=== PATIENT | male | born 1970 | race African-American/Black ===

== ENCOUNTER 2016-09-06 11:43 | Inpatient (IN) ==
[2016-09-06] MEDS ORDERED: ENOXAPARIN 100 MG/ML SYRINGE SUBCUT STA (12:12)
[2016-09-06] MEDS ORDERED: ASPIRIN 325 MG TABLET PO STA (12:12)
[2016-09-06] MEDS ORDERED: METOPROLOL TARTRATE 5 MG/5 ML VIAL IV STA (12:12)
[2016-09-06] MEDS ORDERED: ONDANSETRON 4 MG/2 ML VIAL IV STA (12:12)
[2016-09-06] MEDS ORDERED: NITROGLYCERIN 2% OINT 1 INCH/GM PACK TOP STA (12:12)
[2016-09-06] MEDS ORDERED: MORPHINE 2 MG/1 ML SYRINGE IV STA (12:12)
--- NOTE | 2016-09-06 12:15 | EKG Report ---
Stationary ECG Study [facility] ER Test Date: 09/06/2016 11:57:03 AM Pat Name: KENYETTA DELEON Department: Room: Gender: M Director Of Clinical Services: Melyssa Shetty : 1970 Requested by: David Yip Order Number: [id number] Reading MD: ANNA SINGH Intervals [place] Rate: 72 P: 67 [place]: 134 QRS: 17 QRSD: 109 T: 41 QT: 396 QTc: 419 Interpretive Statements SINUS RHYTHM Electronically Signed On 09-06-16 18:00:07 CDT by ANNA SINGH [email or web address]
[2016-09-06] MEDS ORDERED: MORPHINE 2 MG/1 ML SYRINGE ONE (12:17)
[2016-09-06] MEDS ORDERED: ENOXAPARIN 100 MG/ML SYRINGE SUBCUT ONE (12:17)
[2016-09-06] MEDS ORDERED: NITROGLYCERIN 2% OINT 1 INCH/GM PACK TOP ONE (12:17)
[2016-09-06] MEDS ORDERED: ONDANSETRON 4 MG/2 ML VIAL ONE (12:17)
[2016-09-06] MEDS ORDERED: METOPROLOL TARTRATE 5 MG/5 ML VIAL IV ONE (12:18)
[2016-09-06] MEDS ORDERED: ASPIRIN 325 MG TABLET ONE (12:18)
[2016-09-06] MEDS ORDERED: ENOXAPARIN 30 MG/0.3 ML SYRINGE ONE (12:18)
[2016-09-06] MEDS: NITROGLYCERIN SL 0.4 MG TABLET SL PRN ×2 (12:25→12:30)
--- NOTE | 2016-09-06 12:35 | Emergency Department Note ---
Elvis Harris Hilary, am scribing for, and in the presence of, David Moon MD 12: 14. Sarai Harris James D, MD, personally performed the services described in this documentation, ascribed by Petra Leal in my presence, and it is both accurate and complete 234 . Arrival - Arrival Chief Complaint: Chest Pain Stated Complaint: chest pain ED Nursing Triage Note: reports got up and took a shower and when he got out and sat down he had sudden onset of chest pain in middle of chest. pressure type pain and reports feels like he cant catch his breath. denies diaphoresis or n/v Mode of Arrival: Ambulatory Limitations: No Limitations Source: Patient, RN Notes Reviewed - History of Present Illness HPI Narrative: Pt is a 46 y/o black male presenting to the ED with c/o chest pain which onset today. He states that he was taking a shower and when he got out he started having chest pain, he states that it feels like there is a golf ball in his chest. Pt confirms chest pain that radiates to his back, SOB but denies vomiting , nausea, diaphoresis. Pt has a PMHx of HTN. No other complaints or problems stated in the ED. Onset (ago): hour(s) Consistency: constant Severity: moderate Severity scale (1-10): 3 Allergies/Adverse Reactions: Allergies Allergy/AdvReac Type Severity Reaction Status Date / Time BAILEY Inhibitors Allergy ANAPHYLAXIS Verified 08/16/14 02:03 Review of System - Review of System 12 point system: reviewed and no additional remarkable complaints except as stated - Review of System Constitutional: Absent: diaphoresis, fever Respiratory: Present: respiratory distress (SOB) Cardiovascular: Present: chest pain Gastrointestinal: Absent: nausea, vomiting Medical,Surgical,& Family Hx - Medical History Cardio: History of: Hypertension Endocrine: History of: Dyslipidemia - Social History Smoking Status: Never smoker Exam Physical Examination: GENERAL: This is a well-nourished, well-developed in no apparent distress. VITAL SIGNS: Temperature: 97.8 Pulse: 73 Respiratory: 26 Blood Pressure: 174/ 116 O2 Sat: 96 HEENT: Head is normocephalic and atraumatic. Pupils are equally round and reactive to light. Extraocular movement are intact. Oropharynx is benign with moist mucous membranes. NECK: Neck is soft and supple without tenderness. There are no masses. There is no lymphadenopathy. LUNGS: Lungs are clear to auscultation bilaterally. Chest rises symmetrically. There is no chest wall tenderness. CV: Heart is regular rate and rhythm without murmurs, rubs, or gallops. ABDOMEN: Abdomen is soft,non- tender to palpation. There are no abnormal masses palpated. There is no organomegaly. Bowel sounds are present and active. SKIN: Skin is warm and dry. No rash. EXTREMITIES: Patient has full range of motion without tenderness. There is no pedal edema. NEUROLOGIC: Awake, alert, and oriented x4. Cranial nerves II through XII are grossly intact. There are no motorsensory deficits. PSYCHIATRIC: Normal affect. Normal mood. Vital Signs: Vital Signs Temperature 97.8 F 09/06/16 12:18 Pulse Rate 73 09/06/16 12:18 Respiratory Rate 22 09/06/16 12:18 Blood Pressure 174/116 09/06/16 12:18 O2 Sat by Pulse Oximetry 96 09/06/16 11:53 Course Course Narrative: Patient's blood pressure is markedly improved following medication. His chest pain improved with decrease of blood pressure. - Consultations Consultation #1: Discussed with hospitalist. Patient will be admitted to their service. Time: 13:21 Results - Labs CBC & BMP: 09/06/16 12:19 09/06/16 12:19 Lab Results: I have reviewed the patients labs Labs: Laboratory Tests 09/06/16 12:19 WBC 6.5 RBC 5.39 Hgb 14.5 Hct 39.9 L MCV 74.0 L MCHC 36.3 H Plt Count 231 Laboratory Tests 09/06/16 12:19 INR 1.0 Laboratory Tests 09/06/16 12:19 Troponin I < 0.015 Laboratory Tests 09/06/16 09/06/16 09/06/16 12:19 12:19 12:19 INR 1.0 PT Patient/Control Mix 10.9 Circ Anticoag PTT 27.5 Sodium 141 Potassium 4.2 Chloride 108 H Carbon Dioxide 23 BUN 18 BUN/Creatinine Ratio 20.00 Troponin I < 0.015 Total Protein 8.1 Globulin 4.1 H Albumin/Globulin Ratio 0.9 L - EKG EKG results: interpreted by ERMD - Impressions EKG: Normal sinus rhythm with rate of 72, normal ST-T waves, normal axis. - Diagnostic Findings Procedure: Chest x-ray: image reviewed by me (Cardiomegaly, no pleural effusions , no infiltrates.) Disposition Clinical Impression: Chest pain, Essential hypertension, Family history of coronary artery disease in mother Case discussed with: patient, patient's family Disposition: Still a Patient Condition: Guarded Time of Disposition: 13:20
[2016-09-06 12:45] LABS: Basophils % 0.6 % (0.0-0.8); Eosinophils # 0.1 10*3/uL (0.0-0.87); Eosinophils % 1.8 % (0.00-10.9); Hematocrit 39.9 VOL% (42.0-52.0); Hemoglobin 14.5 GM/DL (14.0-18.0); Immature Granulocytes % 0.8 %; Immature Granulocytes Absolute 0.05 #; Lymphocytes # 2.4 10*3/uL (1.4-4.0); Lymphocytes % 37.2 % (21.2-54.2); Mean Corpuscular HGB Conc 36.3 GM/DL (32-36); Mean Corpuscular Hemoglobin 27 PG (27-34); Mean Platelet Volume 10.6 FL (9.6-12.0); Monocytes # 0.6 10*3/uL (0.11-0.8); Neutrophils # 3.3 10*3/uL (1.4-7.4); Neutrophils % 50.6 % (38.7-73.9); Platelet Count 231 T/CUMM (130-400); Red Blood Count 5.39 MC/CUMM (3.8-5.5); Red Cell Distribution Width 16.4 % (9.3-17.3); White Blood Count 6.5 T/CUMM (4-12)
--- NOTE | 2016-09-06 12:56 | XRay Report ---
XR chest 2V Indication: Chest pain. Chest 2 views: Comparison 10/14/2010. Heart has increased slightly in size, now borderline enlarged. Mild central pulmonary vascular congestion is more pronounced as well. No focal pneumonia, and no significant peripheral edema demonstrated. Pleural spaces are clear. Impression: Mild CHF. PROCEDURE INTERPRETED AT [facility] DEPARTMENT OF RADIOLOGY Final Report Signed by: Jose Valadez M.D.
[2016-09-06 12:57] LABS: PT Patient Result 10.9 SECS; Partial Thromboplastin Time 27.5 SECS (0-40)
[2016-09-06 13:10] LABS: Bilirubin,Total 0.8 MG/DL (0.2-1.0); Calcium 9.6 MG/DL (8.5-10.1); Osmolality,Calculated 282.3 MOS/KG (273-304); Potassium 4.2 MMOL/L (3.5-5.1); Total Protein 8.1 G/DL (6.4-8.3)
[2016-09-06] MEDS ORDERED: ACETAMINOPHEN 325 MG TABLET PO PRN (14:01)
[2016-09-06] MEDS ORDERED: ONDANSETRON 4 MG/2 ML VIAL IV PRN (14:01)
[2016-09-06] MEDS ORDERED: FUROSEMIDE 40 MG/4 ML VIAL IV ONE (14:04)
[2016-09-06] MEDS ORDERED: hydrALAZINE 20 MG/1 ML VIAL IV STA (14:04)
--- NOTE | 2016-09-06 14:21 | Hospitalist History & Physical ---
Assessment and Plan - Time spent with patient Time spent with patient: Greater than 30 minutes (1) Chest pain Status: Acute Assessment and plan: Chest xray - shows mild CHF - will continue to monitor; admit; labs; start on BP medications to control BP; CT of chest to R/O PE; doppler left leg r/t pain maldonado and calf; EKG; serial troponins, Echo; order PRN hydralazine; patient is unable to take BAILEY inhibitors r/t severe allergy Current Visit: Yes (2) Essential hypertension Status: Acute Current Visit: Yes History of Present Illness Chief complaint: chest pain History of present illness: Mr. Calderon is a 46 year old black male presented to the ED at [facility] this afternoon for evaluation of chest pain, starting today at 11:30. Patient has a medical history of hypertension and cholesterol. Patient reported onset at 11;30 a.m. today. Pertinent positives: hypertension, increased pain with deep inspiration. Patient has not taken BP medications in months (not sure how long); he ran out but could not afford to refill; Negatives: denies: nausea, vomiting, dizziness, syncope, cough, fever, or chills. Patient recently traveled to [place] to help a friend move and noticed some swelling in his left leg/ankle and the next day has some maldonado pain and tenderness but has been able to walk with without a lot of pain. Past surgery: had a "type of colon surgery when he was a ". Patient is ALLERGIC to BAILEY inhibitors. ED presentation: assessed and labs: H&H 14.5/39.9; PLT 231; INR 1.0; PT 10.9; PTT 27.5; sodium 141; K 4.2; chloride 108; anion gap 14.2; BUN 18; Creatinine 0.90; AST 22; ALT 42; ALT 42; alkaline Phos 90; Troponin <0.015 chest xray - mild CHF EKG - NSR Dr Pantoja went with me to exam patient and she is in agreement with Dr Moon the patient needs to be admitted for further evaluation. Allergies Allergy/AdvReac Type Severity Reaction Status Date / Time BAILEY Inhibitors Allergy ANAPHYLAXIS Verified 08/16/14 02:03 Medical,Surgical,& Family Hx - Medical History Cardio: History of: Hypertension Endocrine: History of: Dyslipidemia - Surgical History Additional Surgical History: patient states he had some type of colon surgery as a - Family History Family History: Reports;: Family Heart Disease (mother), Family Hypertension ( mother) - Social History Smoking Status: Never smoker Frequency of Alcohol Use: Frequently (2-3 times a week (beer and [place])) Type of Drug Use: None Marital Status: Lives With:: Spouse Functional capacity: independent ambulation Review of systems: ROS completed and pertinent positives and negatives in HPI Exam - Constitutional Vitals: Period Temp Pulse Resp BP Sys/Ramirez Pulse Ox Last 24 Hr 97.8 F-97.8 F 73-73 22-26 174-174/116-116 96 General appearance: over weight - Head Head exam: Present: normal inspection - Eye Pupils: Present: JANETH - Neck Neck exam: Present: normal inspection - Respiratory Respiratory exam: Present: clear to auscultation bilaterally - Cardiovascular Cardiovascular exam: Present: regular rate and rhythm - GI/Abdominal GI/Abdominal exam: Present: normal bowel sounds, soft. Absent: tenderness, rebound - Extremities Exam Extremities exam: Present: calf tenderness (left leg has some pain upon palpation; that has started a couple of days ago) - Neurological Exam Neurological exam: Present: alert, oriented X3, CN II-XII intact - Psychiatric Psychiatric exam: Present: normal affect - Skin Skin exam: Present: normal color, warm, dry Results - Labs CBC & BMP: 09/06/16 12:19 09/06/16 12:19 Lab Results: I have reviewed the past 24 hour labs - Diagnostic Findings Procedure: Chest x-ray: report reviewed by me (mild CHF)
--- NOTE | 2016-09-06 14:22 | CT Report ---
Exam: CT chest with contrast, PE study Date: 09/06/2016 Comparison: Chest x-ray 09/06/2016 Reason: Chest pain, shortness of breath Technique: Axial images of the chest were obtained after administration of 80 cc of IV Omnipaque 350 intravenous contrast. Coronal reformatted images were also acquired. The study was performed per pulmonary embolism protocol. Total DLP: 812.70 Findings: The heart is borderline in size with cardiac fat pads. No significant contrast in the aorta with limited contrast in the pulmonary arteries. No definite pulmonary emboli are identified. Subcarinal nodes which are borderline in size. Fatty infiltration of the liver with minimal degenerative changes. Minimal atelectasis/infiltration especially in the lower lobes. Tiny groundglass opacities. Impression: No evidence of pulmonary embolism. Somewhat limited contrast in the pulmonary arteries. Heart is borderline size cardiac fat pads and fatty infiltration of the liver. Subcarinal nodes which are borderline size. Minimal atelectasis/infiltration especially in the lower lobes with tiny groundglass opacities. This CT exam was performed using one or more the following dose reduction techniques: Automated exposure control, adjustment of the MA and/or KV according to patient size, or use of iterative reconstruction technique. PROCEDURE INTERPRETED AT [facility] DEPARTMENT OF RADIOLOGY Final Report Signed by: Dr. Roselia Kennedy
--- NOTE | 2016-09-06 15:26 | Ultrasound Report ---
Exam: Bilateral lower extremity venous Doppler ultrasound Comparison: None Clinical history: Leg swelling Technique: Duplex scan of the lower extremity veins using B-mode/grayscale scaled imaging and Doppler spectral analysis and color flow. Findings: Major venous structures of the lower extremities demonstrate a normal course and caliber. Normal color-flow study and spectral analysis. There is normal compression and augmentation of bilateral common femoral, superficial femoral and popliteal veins. The proximal bilateral greater saphenous veins appear to be patent. Impression: No evidence to suggest deep venous thrombosis within either lower extremity. Ultrasound images were captured and stored. PROCEDURE INTERPRETED AT [facility] DEPARTMENT OF RADIOLOGY Final Report Signed by: Dr. Roselia Kennedy
--- NOTE | 2016-09-06 15:52 | EKG Report ---
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
[2016-09-06] MEDS: METOPROLOL TARTRATE 25 MG TABLET PO SCH ×2 (16:27→20:35)
[2016-09-06] MEDS: amLODIPine 10 MG TABLET PO SCH (16:27)
[2016-09-06] MEDS: PANTOPRAZOLE 40 MG TABLET PO SCH (16:28)
--- NOTE | 2016-09-06 17:02 | Cardiology Consult Note ---
<Caro Bey - Last Filed: 09/06/16 16:46> Assessment and Plan - Time spent with patient Time spent with patient: Greater than 30 minutes (1) Atypical chest pain Status: Acute Assessment and plan: SEE PLAN OF CARE LISTED BELOW Current Visit: Yes (2) Uncontrolled hypertension Status: Chronic Assessment and plan: SEE PLAN OF CARE LISTED BELOW Current Visit: Yes (3) Noncompliance with medication regimen Status: Chronic Assessment and plan: SEE PLAN OF CARE LISTED BELOW Current Visit: Yes (4) Obesity Status: Chronic Assessment and plan: SEE PLAN OF CARE LISTED BELOW Current Visit: Yes (5) Dyslipidemia Status: Chronic Assessment and plan: SEE PLAN OF CARE LISTED BELOW Current Visit: Yes (6) Family history of coronary artery disease in mother Status: Chronic Assessment and plan: SEE PLAN OF CARE LISTED BELOW Current Visit: Yes History of Present Illness - Data of Consult Patient: new to practice Consult date: 09/06/16 Requesting Physician: Pilar Pantoja - Consult Narrative History of present illness: Bow Maker Production: New to cardiology (Dr. Irizarry, [facility]) PCP: [facility] in remote past Mr. Calderon is a 46 year old male without known history of coronary artery disease , not routinely followed by cardiology. He has cardiac risk factors significant for hypertension, hyperlipidemia, obesity and family history of coronary artery disease (mother had myocardial infarction at age 58). Patient has a past medical history of hypertension and hyperlipidemia. However, he is extremely noncompliant and reports that he has been out of his medicines for at least 5-6 months. He tells me that he does not have insurance and cannot afford to go to the doctor on a regular basis. His doctor at [facility] would not refill his medications without him being seen first. Therefore, he has not obtained any of his blood pressure or cholesterol medications. Patient is a lifetime non-smoker. He has never been seen by a community center coordinator and has never undergone cardiac workup. Patient was in his usual state of health until early this morning when he began to experience midsternal chest pain. He tells me that it feels like he swallowed a golf ball. Radiates to his back. This began early this morning while sitting down. It has continued off and on all day. He reports that it has worsened with activity and with taking deep breaths. However, he does report that it did occur at rest as well. He is unable to identify any specific alleviating factors. Associated with shortness of breath. He denies any associated nausea or diaphoresis. This continued to progress throughout the day. This concerned him and he decided he needed to be further evaluated in the emergency department. He reports that he received nitroglycerin and morphine in the ER. This relieved his chest pain. He has been admitted under hospitalist's service and housed in the telemetry unit. Cardiology has been consulted to further evaluate his chest pain. Patient was seen and examined on the telemetry unit. He is currently without chest pain, heaviness and tightness. Cardiac biomarkers have been negative 1. EKG is unremarkable. Chest CT was negative for pulmonary embolism. DVT did not reveal any evidence of DVT. On arrival to the emergency department patient' s blood pressure was noted to be 174/116. patient's chest pain is atypical in nature. I suspect this could possibly be related to his uncontrolled blood pressure as he is noncompliant with his medications. Patient does have several risk factors including: Hyperlipidemia, hypertension, obesity and family history. Because of this, patient will need further cardiac workup. We will keep patient n.p.o. and schedule for cardiac stress test in the morning. We will continue to cycle cardiac biomarkers overnight as well as EKGs. Recommend daily aspirin, beta-yazan and lipid-lowering agent for further risk stratification. Will hold beta-yazan in the morning prior to stress testing. I will further discuss this with Dr. carter and await his additional recommendations. ASSESSMENT/PLAN: 1. ATYPICAL CHEST PAIN - Patient's chest pain is atypical in nature. Troponin has been negative 1 and EKG is unremarkable. I suspect this could possibly be related to his uncontrolled blood pressure as he is noncompliant with his medications. Patient does have several risk factors including : Hyperlipidemia, hypertension, obesity and family history. Because of this, patient will need further cardiac workup. We will keep patient n.p.o. and schedule for cardiac stress test in the morning. We will continue to cycle cardiac biomarkers overnight as well as EKGs. Recommend daily aspirin, beta-yazan and lipid-lowering agent for further risk stratification. Continue nitrates. Patient received a therapeutic dose of Lovenox in the emergency room. 2. UNCONTROLLED HYPERTENSION - Agree with the addition of beta-yazan, Norvasc and as needed hydralazine in order to achieve blood pressure control. Will further adjust as needed throughout his hospitalization. 3. MEDICATION NONCOMPLIANCE - Stressed the importance of medication compliance. Patient reports that he is noncompliant due to in adequate compliance and he has no insurance. I will consult social studies teacher to assist. 4. DYSLIPIDEMIA - We will add lipid lowering agent to medication regimen. Will also add lipid panel to lab draw. 5. FAMILY HISTORY OF CAD - He reports that his mother has history of coronary artery disease. She has had 3 myocardial infarctions in the past. He believes that she had her first PA at age 58. 6. OBESITY - Stressed the importance of weight loss. CC: Pilar Pantoja MD - Home Medications and Allergies Home Medications: Home Medications Medication Instructions Recorded Confirmed Type Cetirizine Tab [ZyrTEC Tab] 10 mg PO DAILY PRN 09/06/16 09/06/16 History Citalopram Hydrobromide 20 mg PO DAILY 09/06/16 09/06/16 History [Citalopram HBr] Meloxicam [Mobic] 7.5 mg PO DAILY 09/06/16 09/06/16 History Metoprolol Tartrate 25 mg PO BID 09/06/16 09/06/16 History Ranitidine Tab [Zantac Tab] 150 mg PO BID 09/06/16 09/06/16 History Simvastatin [Zocor] 40 mg PO BEDTIME 09/06/16 09/06/16 History amLODIPine [Norvasc] 2.5 mg PO BEDTIME 09/06/16 09/06/16 History amLODIPine [Norvasc] 10 mg PO DAILY 09/06/16 09/06/16 History Allergies/Adverse Reactions: Allergies Allergy/AdvReac Type Severity Reaction Status Date / Time BAILEY Inhibitors Allergy ANAPHYLAXIS Verified 08/16/14 02:03 - Constitutional Constitutional: Absent: anorexia, chills, fatigue, fever(s), lethargy, weakness , weight gain, weight loss - Cardiovascular Cardiovascular: Present: as per HPI, chest pain at rest, dyspnea. Absent: claudication, diaphoresis, dyspnea on exertion, edema, radiating jaw, neck or arm pain, lightheadedness, orthopnea, palpitations, PND - Respiratory Respiratory: Present: dyspnea, pain on inspiration. Absent: cough, hemoptysis, dyspnea on exertion, wheezing, snoring, change in phlegm color - Gastrointestinal Gastrointestinal: Absent: abdominal pain, change in bowel habits, coffee ground emesis, constipation, dyspepsia, heartburn, hematemesis, hematochezia, melena, nausea, vomiting - Neurological Neurological: Absent: abnormal gait, abnormal speech, behavioral changes, dizziness, frequent falls, syncope - Hematologic/Lymphatic Hematologic/Lymphatic: Absent: easy bleeding, easy bruising, lymphadenopathy Medical,Surgical,& Family Hx - Medical History Cardio: History of: Hypertension Endocrine: History of: Dyslipidemia Gastrointestinal: History of: GI Problems (constipation) Musculoskeletal: History of: Back/Neck Problems ("two years ago), Musculoskeletal Problems ("right leg hurts") - Surgical History Cardiac Surgeries: Patient Denies: Cardiac Catheterization Abdominal Surgeries: Surgical HX of: Abdominal Surgery (small intestine surgery as a baby) - Family History Family History: Reports;: Family Heart Disease (mother), Family Hypertension ( mother) - Social History Smoking Status: Never smoker Frequency of Alcohol Use: Frequently Type of Drug Use: None Physical Examination Vital Signs Temp Pulse Resp BP Pulse Ox 97.8 F 73 26 H 174/116 96 09/06/16 11:53 09/06/16 11:53 09/06/16 11:53 09/06/16 11:53 09/06/16 11:53 Exam: General: Appears well with no apparent distress. Pleasant and cooperative. Appears comfortable. Obese. HEENT: PERRL, normocephalic, atraumatic. Mucous membranes moist. No jaundice noted. Conjunctiva moist and clear, sclerae anicteric Neck: No JVD/HJR, no thyromegaly or lymphadenopathy noted. No carotid bruit appreciated Cardiac: Regular rate and rhythm. No murmur rub or gallop. Lungs: Clear to auscultation without accessory muscle use to assist the respiratory pattern. Not requiring oxygen. Abdomen: Soft, bowel sounds normoactive. Nontender and nondistended. No abdominal bruit or thrill noted. No masses noted. Extremities: No clubbing, cyanosis noted. No edema noted. Upper extremity pulses 2+. Lower extremity pulses 2+. Capillary refill less than 3 seconds. Skin: No unusual lesions or rashes. No skin breakdown appreciated. Neuro: Awake, alert and oriented 3. Moves all extremities well without hemiparesis or paralysis. No essential tremor is appreciated. Result/EKG - Labs CBC & BMP: 09/06/16 12:19 09/06/16 12:19 Lab Results: I have reviewed the past 24 hour labs Labs: Laboratory Results - last 24 hr 09/06/16 09/06/16 09/06/16 12:19 12:19 12:19 WBC 6.5 RBC 5.39 Hgb 14.5 Hct 39.9 L MCV 74.0 L MCH 27 MCHC 36.3 H RDW 16.4 Plt Count 231 MPV 10.6 Neut % (Auto) 50.6 Lymph % (Auto) 37.2 Ward % (Auto) 9.0 Eos % (Auto) 1.8 Baso % (Auto) 0.6 Neut # (Auto) 3.3 Lymph # (Auto) 2.4 Ward # (Auto) 0.6 Eos # (Auto) 0.1 Baso # (Auto) 0.0 Immature Gran % 0.8 Nucleated RBC % 0.0 Immature Gran # 0.05 Nucleated RBCs # 0.00 INR 1.0 PT Patient/Control Mix 10.9 Circ Anticoag PTT 27.5 Sodium 141 Potassium 4.2 Chloride 108 H Carbon Dioxide 23 Anion Gap 14.2 BUN 18 Creatinine 0.90 GFR Calculation 168 BUN/Creatinine Ratio 20.00 Glucose 98 Hemoglobin A1c Calculated Osmolality 282.3 Calcium 9.6 Total Bilirubin 0.80 AST 22 ALT 42 Alkaline Phosphatase 90 Troponin I Total Protein 8.1 Albumin 4.0 Globulin 4.1 H Albumin/Globulin Ratio 0.9 L Lipase 96.0 09/06/16 09/06/16 12:19 12:19 WBC RBC Hgb Hct MCV MCH MCHC RDW Plt Count MPV Neut % (Auto) Lymph % (Auto) Ward % (Auto) Eos % (Auto) Baso % (Auto) Neut # (Auto) Lymph # (Auto) Ward # (Auto) Eos # (Auto) Baso # (Auto) Immature Gran % Nucleated RBC % Immature Gran # Nucleated RBCs # INR PT Patient/Control Mix Circ Anticoag PTT Sodium Potassium Chloride Carbon Dioxide Anion Gap BUN Creatinine GFR Calculation BUN/Creatinine Ratio Glucose Hemoglobin A1c 5.8 Calculated Osmolality Calcium Total Bilirubin AST ALT Alkaline Phosphatase Troponin I < 0.015 Total Protein Albumin Globulin Albumin/Globulin Ratio Lipase - EKG EKG results: interpreted by me, sinus rhythm Quality Measures - Stroke Presenting Symptoms: Efferent motor dysphasia <Rocky Irizarry - Last Filed: 09/06/16 17:09> History of Present Illness - Consult Narrative History of present illness: Cardiology addendum. Patient examined, chart reviewed, discussed with nurse Caro Bey RN. Atypical chest pain. Untreated hypertension BP 174/116 Noncompliance with medication Patient helped a friend moved to [facility] this past Sunday. He did quite a bit of heavy lifting moving furniture and muscle strain is probable cause of his pain. CT the chest was negative for pulmonary embolus. Venous Doppler study legs also negative. Lifetime non-smoker. Hyperlipidemia untreated 5 feet 11 inches tall 290 pounds. Weighed 320 pounds 2 years ago. He consumes beer and whiskey 3 or 4 times per week. Mother had a heart attack and stent at age 54 and second heart attack and stent in her 60s. He has had no contact with his father and several years. He was raised by his grandfather. 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 He has not worked in over 2 years. EKG shows normal sinus rhythm with ST-T wave changes only. Negative troponin. Normal LFTs. Normal renal function. Plan Restart BP meds Echo Doppler Lexiscan cardiac stress test in a.m. Risk factor modification Findings and plan discussed with patient and his Chani CC: Pilar Pantoja MD Physical Examination Vital Signs Temp Pulse Resp BP Pulse Ox 97.8 F 73 26 H 174/116 96 09/06/16 11:53 09/06/16 11:53 09/06/16 11:53 09/06/16 11:53 09/06/16 11:53 Result/EKG - Labs CBC & BMP: 09/06/16 12:19 09/06/16 12:19 Labs: Laboratory Results - last 24 hr 09/06/16 09/06/16 09/06/16 12:19 12:19 12:19 WBC 6.5 RBC 5.39 Hgb 14.5 Hct 39.9 L MCV 74.0 L MCH 27 MCHC 36.3 H RDW 16.4 Plt Count 231 MPV 10.6 Neut % (Auto) 50.6 Lymph % (Auto) 37.2 Ward % (Auto) 9.0 Eos % (Auto) 1.8 Baso % (Auto) 0.6 Neut # (Auto) 3.3 Lymph # (Auto) 2.4 Ward # (Auto) 0.6 Eos # (Auto) 0.1 Baso # (Auto) 0.0 Immature Gran % 0.8 Nucleated RBC % 0.0 Immature Gran # 0.05 Nucleated RBCs # 0.00 INR 1.0 PT Patient/Control Mix 10.9 Circ Anticoag PTT 27.5 Sodium 141 Potassium 4.2 Chloride 108 H Carbon Dioxide 23 Anion Gap 14.2 BUN 18 Creatinine 0.90 GFR Calculation 168 BUN/Creatinine Ratio 20.00 Glucose 98 Hemoglobin A1c Calculated Osmolality 282.3 Calcium 9.6 Total Bilirubin 0.80 AST 22 ALT 42 Alkaline Phosphatase 90 Troponin I Total Protein 8.1 Albumin 4.0 Globulin 4.1 H Albumin/Globulin Ratio 0.9 L Lipase 96.0 09/06/16 09/06/16 09/06/16 12:19 12:19 16:09 WBC RBC Hgb Hct MCV MCH MCHC RDW Plt Count MPV Neut % (Auto) Lymph % (Auto) Ward % (Auto) Eos % (Auto) Baso % (Auto) Neut # (Auto) Lymph # (Auto) Ward # (Auto) Eos # (Auto) Baso # (Auto) Immature Gran % Nucleated RBC % Immature Gran # Nucleated RBCs # INR PT Patient/Control Mix Circ Anticoag PTT Sodium Potassium Chloride Carbon Dioxide Anion Gap BUN Creatinine GFR Calculation BUN/Creatinine Ratio Glucose Hemoglobin A1c 5.8 Calculated Osmolality Calcium Total Bilirubin AST ALT Alkaline Phosphatase Troponin I < 0.015 < 0.015 Total Protein Albumin Globulin Albumin/Globulin Ratio Lipase
--- NOTE | 2016-09-06 17:28 | EKG Report ---
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
--- NOTE | 2016-09-06 17:35 | ECHO Report ---
Jarrell Calderon Exam Date: 09/06/2016 16:08 Referring Physician: Technologist: Latha Allison RDCS Age: 46 Ht (in): 71 Wt (lb): 290 Gender: M Exam Location: [facility] Echo Indications: Chest pain, unspecified, Essential (primary) hypertension, Dyslipidemia BP: 161 / 95 HR: 67 Rhythm: Sinus Technical Quality: Fair IMPRESSIONS EF 60 %. Grade I/IV diastolic dysfunction (abnormal relaxation filling pattern), normal to mildly elevated filling pressures. The right ventricle is normal in size and function. The right atrium is mildly enlarged. The left atrium is mildly enlarged. Morphologically normal mitral valve. Trace mitral valve regurgitation. Trileaflet aortic valve. No aortic valve regurgitation. Mild tricuspid valve regurgitation. PAP42 mmHg. There is no pulmonic regurgitation. Normal pericardium without effusion. Normal ascending aorta dimension. MEASUREMENTS (Male / Female) Normal Values 2D ECHO LV Diastolic Diameter PLAX 4.2 cm 4.2 - 5.9 / 3.9 - 5.3 cm LV Systolic Diameter PLAX 2.8 cm LV Fractional Shortening PLAX 32.6 % IVS Diastolic Thickness 1.3 cm 0.6 - 1.0 / 0.6 - 0.9 cm LVPW Diastolic Thickness 1.3 cm 0.6 - 1.0 / 0.6 - 0.9 cm RV Internal Dim ED PLAX 3.3 cm Aortic Root Diameter 3.3 cm LA Systolic Diameter LX 4.1 cm 3.0 - 4.0 / 2.7 - 3.8 cm DOPPLER TR Peak Velocity 284.0 cm/s TR Peak Gradient 32.3 mmHg FINDINGS Left Ventricle EF 60 %. Grade I/IV diastolic dysfunction (abnormal relaxation filling pattern), normal to mildly elevated filling pressures. Right Ventricle The right ventricle is normal in size and function. Right Atrium The right atrium is mildly enlarged. Left Atrium The left atrium is mildly enlarged. Mitral Valve Morphologically normal mitral valve. Trace mitral valve regurgitation. Aortic Valve Trileaflet aortic valve. No aortic valve regurgitation. Tricuspid Valve Morphologically normal tricuspid valve. Mild tricuspid valve regurgitation. PAP42 mmHg. Pulmonic Valve Morphologically normal pulmonic valve without significant stenosis. There is no pulmonic regurgitation. Pericardium Normal pericardium without effusion. Aorta Normal ascending aorta dimension. Tacho Irizarry (Electronically Signed) Final Date: 06 September 2016 17:34
[2016-09-06 17:43] LABS: Risk Ratio 6.22; VLDL CHOLESTEROL 45.8 MG/DL
[2016-09-06] MEDS: NITROGLYCERIN 2% OINT 1 INCH/GM PACK TOP SCH (18:08)
[2016-09-06] MEDS: MORPHINE 2 MG/1 ML SYRINGE IV PRN (20:35)
[2016-09-06] MEDS: ATORVASTATIN 20 MG TABLET PO SCH (20:35)
[2016-09-06] MEDS ORDERED: ENOXAPARIN 150 MG/ML SYRINGE SUBCUT SCH (22:00)
[2016-09-07 00:05] LABS: Troponin I Only < 0.015 NG/ML (0.00-0.045)
[2016-09-07] MEDS: NITROGLYCERIN 2% OINT 1 INCH/GM PACK TOP SCH ×3 (01:04→12:02)
[2016-09-07 06:07] LABS: Basophils % 0.6 % (0.0-0.8); Eosinophils # 0.2 10*3/uL (0.0-0.87); Eosinophils % 2.8 % (0.00-10.9); Hematocrit 39.1 VOL% (42.0-52.0); Hemoglobin 14.4 GM/DL (14.0-18.0); Immature Granulocytes % 0.3 %; Immature Granulocytes Absolute 0.02 #; Lymphocytes # 2.7 10*3/uL (1.4-4.0); Lymphocytes % 38.9 % (21.2-54.2); Mean Corpuscular HGB Conc 36.8 GM/DL (32-36); Mean Corpuscular Hemoglobin 28 PG (27-34); Mean Corpuscular Volume 74.6 FL (87-102); Mean Platelet Volume 11.8 FL (9.6-12.0); Monocytes # 0.8 10*3/uL (0.11-0.8); Monocytes % 10.9 % (1.7-12.7); Neutrophils # 3.3 10*3/uL (1.4-7.4); Neutrophils % 46.5 % (38.7-73.9); Platelet Count 240 T/CUMM (130-400); Red Blood Count 5.24 MC/CUMM (3.8-5.5); Red Cell Distribution Width 16.2 % (9.3-17.3); White Blood Count 7.1 T/CUMM (4-12)
[2016-09-07] MEDS: hydrALAZINE 20 MG/1 ML VIAL IV PRN ×2 (06:16→16:33)
[2016-09-07 06:38] LABS: Calcium 8.5 MG/DL (8.5-10.1); Magnesium 2.4 MG/DL (1.8-2.4); Osmolality,Calculated 279.5 MOS/KG (273-304); Potassium 3.9 MMOL/L (3.5-5.1)
--- NOTE | 2016-09-07 07:01 | EKG Report ---
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
--- NOTE | 2016-09-07 07:50 | Cardiology Progress Note ---
Cardiology - PN: Subj Interval history: Cardiology note No pain. Troponin negative 3. Telemetry benign. Blood pressure 150/84 Regular rhythm Clear lungs Cholesterol 311 triglycerides 229 LDL 188 HDL 50 Plan Exercise cardiac stress test today Atorvastatin started Exam (Progress Note) - Constitutional Vitals: Period Temp Pulse Resp BP Sys/Ramirez Pulse Ox Last 24 Hr 97.7 F-99 F 70-80 18-26 150-174/92-116 85-98 Result/EKG - Labs CBC & BMP: 09/07/16 04:47 09/07/16 04:47 Labs: Laboratory Results - last 24 hr 09/06/16 09/06/16 09/06/16 12:19 12:19 12:19 WBC 6.5 RBC 5.39 Hgb 14.5 Hct 39.9 L MCV 74.0 L MCH 27 MCHC 36.3 H RDW 16.4 Plt Count 231 MPV 10.6 Neut % (Auto) 50.6 Lymph % (Auto) 37.2 [place] % (Auto) 9.0 Eos % (Auto) 1.8 Baso % (Auto) 0.6 Neut # (Auto) 3.3 Lymph # (Auto) 2.4 [place] # (Auto) 0.6 Eos # (Auto) 0.1 Baso # (Auto) 0.0 Immature Gran % 0.8 Nucleated RBC % 0.0 Immature Gran # 0.05 Nucleated RBCs # 0.00 INR 1.0 PT Patient/Control Mix 10.9 Circ Anticoag PTT 27.5 Sodium 141 Potassium 4.2 Chloride 108 H Carbon Dioxide 23 Anion Gap 14.2 BUN 18 Creatinine 0.90 GFR Calculation 168 BUN/Creatinine Ratio 20.00 Glucose 98 Hemoglobin A1c Calculated Osmolality 282.3 Calcium 9.6 Magnesium Total Bilirubin 0.80 AST 22 ALT 42 Alkaline Phosphatase 90 Total Creatine Kinase CK-MB (CK-2) Troponin I Total Protein 8.1 Albumin 4.0 Globulin 4.1 H Albumin/Globulin Ratio 0.9 L Triglycerides Cholesterol LDL Cholesterol VLDL Cholesterol HDL Cholesterol Heart Disease Risk Ratio Lipase 96.0 09/06/16 09/06/16 09/06/16 12:19 12:19 16:00 WBC RBC Hgb Hct MCV MCH MCHC RDW Plt Count MPV Neut % (Auto) Lymph % (Auto) [place]ascade % (Auto) Eos % (Auto) Baso % (Auto) Neut # (Auto) Lymph # (Auto) [place] # (Auto) Eos # (Auto) Baso # (Auto) Immature Gran % Nucleated RBC % Immature Gran # Nucleated RBCs # INR PT Patient/Control Mix Circ Anticoag PTT Sodium Potassium Chloride Carbon Dioxide Anion Gap BUN Creatinine GFR Calculation BUN/Creatinine Ratio Glucose Hemoglobin A1c 5.8 Calculated Osmolality Calcium Magnesium Total Bilirubin AST ALT Alkaline Phosphatase Total Creatine Kinase CK-MB (CK-2) Troponin I < 0.015 Total Protein Albumin Globulin Albumin/Globulin Ratio Triglycerides 229 H Cholesterol 311 H LDL Cholesterol 188.0 VLDL Cholesterol 45.8 HDL Cholesterol 50 Heart Disease Risk Ratio 6.22 Lipase 09/06/16 09/06/16 09/07/16 16:09 23:07 04:47 WBC 7.1 RBC 5.24 Hgb 14.4 Hct 39.1 L MCV 74.6 L MCH 28 MCHC 36.8 H RDW 16.2 Plt Count 240 MPV 11.8 Neut % (Auto) 46.5 Lymph % (Auto) 38.9 [place]ascade % (Auto) 10.9 Eos % (Auto) 2.8 Baso % (Auto) 0.6 Neut # (Auto) 3.3 Lymph # (Auto) 2.7 [place] # (Auto) 0.8 Eos # (Auto) 0.2 Baso # (Auto) 0.0 Immature Gran % 0.3 Nucleated RBC % 0.0 Immature Gran # 0.02 Nucleated RBCs # 0.00 INR PT Patient/Control Mix Circ Anticoag PTT Sodium Potassium Chloride Carbon Dioxide Anion Gap BUN Creatinine GFR Calculation BUN/Creatinine Ratio Glucose Hemoglobin A1c Calculated Osmolality Calcium Magnesium Total Bilirubin AST ALT Alkaline Phosphatase Total Creatine Kinase 250 CK-MB (CK-2) < 1.0 Troponin I < 0.015 < 0.015 Total Protein Albumin Globulin Albumin/Globulin Ratio Triglycerides Cholesterol LDL Cholesterol VLDL Cholesterol HDL Cholesterol Heart Disease Risk Ratio Lipase 09/07/16 04:47 WBC RBC Hgb Hct MCV MCH MCHC RDW Plt Count MPV Neut % (Auto) Lymph % (Auto) [place] % (Auto) Eos % (Auto) Baso % (Auto) Neut # (Auto) Lymph # (Auto) [place] # (Auto) Eos # (Auto) Baso # (Auto) Immature Gran % Nucleated RBC % Immature Gran # Nucleated RBCs # INR PT Patient/Control Mix Circ Anticoag PTT Sodium 139 Potassium 3.9 Chloride 104 Carbon Dioxide 25 Anion Gap 13.9 BUN 17 Creatinine 0.90 GFR Calculation 168 BUN/Creatinine Ratio 18.00 Glucose 125 H Hemoglobin A1c Calculated Osmolality 279.5 Calcium 8.5 Magnesium 2.4 Total Bilirubin AST ALT Alkaline Phosphatase Total Creatine Kinase CK-MB (CK-2) Troponin I Total Protein Albumin Globulin Albumin/Globulin Ratio Triglycerides Cholesterol LDL Cholesterol VLDL Cholesterol HDL Cholesterol Heart Disease Risk Ratio Lipase Quality Measures - Stroke Presenting Symptoms: Efferent motor dysphasia
--- NOTE | 2016-09-07 08:22 | Event Note ---
Patient underwent cardiac stress testing today. He achieved target heart rate Via Ike protocol. He tolerated well without complaints of chest pain, heaviness and tightness. Mild dyspnea on exertion noted. Occasional PVCs noted and stage II. During stage III, he had several beats of nonsustained ventricular tachycardia. Patient was a symptomatic. This quickly resolved in the recovery phase. No significant ST changes were noted. Patient is now on to final nuclear scan. Dr. Irizarry to read, interpreted in advised.
[2016-09-07] MEDS ORDERED: KETOROLAC 30 MG/1 ML VIAL IV ONE (09:28)
[2016-09-07] MEDS: ENOXAPARIN 40 MG/0.4 ML SYRINGE SUBCUT SCH (09:29)
[2016-09-07] MEDS: ASPIRIN 325 MG TABLET PO SCH (09:29)
[2016-09-07] MEDS: PANTOPRAZOLE 40 MG TABLET PO SCH (09:29)
[2016-09-07] MEDS: amLODIPine 10 MG TABLET PO SCH (09:29)
[2016-09-07] MEDS: METOPROLOL TARTRATE 25 MG TABLET PO SCH ×2 (09:29→20:52)
[2016-09-07 10:37] LABS: Troponin I Only < 0.015 NG/ML (0.00-0.045)
--- NOTE | 2016-09-07 10:42 | Hospitalist Progress Note ---
<Nancy Pope - Last Filed: 09/07/16 10:39> Assessment and Plan - Time spent with patient Time spent with patient: Less than 30 minutes (1) Chest pain Status: Acute Assessment and plan: 09/07/16 triglycerides 229; cholesterol 311; LDL 188.0; HDL 50; patient has been restarted of Lipitor; will continue to monitor. Patient had Lexiscan this a.m. Dr Irizarry event note is as : Patient underwent cardiac stress testing today. He achieved target heart rate Via Ike protocol. He tolerated well without complaints of chest pain, heaviness and tightness. Mild dyspnea on exertion noted. Occasional PVCs noted and stage II. During stage III, he had several beats of nonsustained ventricular tachycardia. Patient was a symptomatic. This quickly resolved in the recovery phase. No significant ST changes were noted. Patient is now on to final nuclear scan. Dr. Irizarry to read, interpreted in advised. Chest xray - shows mild CHF - will continue to monitor; admit; labs; start on BP medications to control BP; CT of chest to R/O PE; doppler left leg r/t pain maldonado and calf; EKG; serial troponins, Echo; order PRN hydralazine; patient is unable to take [facility] inhibitors r/t severe allergy Current Visit: Yes (2) Essential hypertension Status: Acute Current Visit: Yes Hospitalist: Subjective Interval history: 09/07/16 Mr Calderon very pleasant this a.m.; he is feeling somewhat better this morning but still having mid posterior back pain associated with taking a deep breath but verbalizes that it is a little better than yesterday. Patient verbalized that he did his lexiscan this a.m.; waiting on report. Exam - Constitutional Vitals: Period Temp Pulse Resp BP Sys/Ramirez Pulse Ox Last 24 Hr 97.7 F-99 F 70-80 18-26 150-174/92-116 85-99 General appearance: over weight - Head Head exam: Present: normal inspection - Eye Eye exam: Present: EOMI Pupils: Present: JANETH - Neck Neck exam: Present: normal inspection - Respiratory Respiratory exam: Present: clear to auscultation bilaterally - Cardiovascular Cardiovascular exam: Present: regular rate and rhythm - GI/Abdominal GI/Abdominal exam: Present: normal bowel sounds, soft. Absent: guarding, tenderness, rebound - Extremities Exam Extremities exam: Present: full ROM. Absent: edema - Neurological Exam Neurological exam: Present: alert, oriented X3, CN II-XII intact - Psychiatric Psychiatric exam: Present: normal affect - Skin Skin exam: Present: normal color, warm, dry Results - Labs CBC & BMP: 09/07/16 04:47 09/07/16 04:47 Lab Results: I have reviewed the past 24 hour labs Quality Measures - Stroke Presenting Symptoms: Efferent motor dysphasia <Pilar Pantoja - Last Filed: 09/07/16 15:29> Hospitalist: Subjective Interval history: I have seen and examined Mr Calderon. He did not have chest pain at his stress test but did have NSVT. The nuclear results are pending. He may need cath- await eval by cardiology. Exam - Constitutional Vitals: Period Temp Pulse Resp BP Sys/Ramirez Pulse Ox Last 24 Hr 97.7 F-99 F 68-80 18-20 150-172/89-105 85-99 Results - Labs CBC & BMP: 09/07/16 04:47 09/07/16 04:47
--- NOTE | 2016-09-07 16:22 | Nuclear Medicine Report ---
DATE: 09/07/2016 PROCEDURE: EXERCISE CARDIOLITE GATED SPECT PERFUSION STUDY. INITIAL IMPRESSION: 1. A 46-YEAR-OLD MAN WITH ATYPICAL CHEST PAIN. 2. HYPERTENSION. 3. ABNORMAL EKG. FINAL IMPRESSION: NORMAL EXERCISE CARDIOLITE GATED SPECT PERFUSION STUDY. I. DESCRIPTION OF PROCEDURE: The patient received 10.0 mCi of Technetium-99m Cardiolite IV and rest imaging was obtained in the routine manner 20 minutes later. The patient then walked for 6 minutes and 24 seconds on the standard Ike protocol and achieved a peak heart rate of 166, which is 95% of his predicted maximal heart rate. At peak exercise, 30.0 mCi of Technetium-99m Cardiolite IV was inj ected and stress imaging was obtained in the routine manner 20 minutes later. Serial electrocardiogr ams were performed. The initial blood pressure was 148/90, and it was 180/102 immediately post exerc ise. II: RESULTS: The patient had no chest pain and the test was terminated due to shortness of breath a nd fatigue. The resting EKG demonstrates normal sinus rhythm with poor R-wave progression across the precordium ST-T wave changes. With exercise, no diagnostic EKG changes occurred. The patient had a short round of nonsustained VT at peak exercise that resolved spontaneously. Tomographic imaging demonstrates homogeneous uptake of radioisotope in all segments. There is no lemuel dence for ischemia or scar. Gated SPECT imaging demonstrates normal wall motion and thickening in al l segments. The calculated ejection fraction is 56%. III: FINAL IMPRESSION: 1. CLINICALLY AND ELECTROCARDIOGRAPHICALLY NEGATIVE. 2. HYPERTENSIVE BLOOD PRESSURE RESPONSE TO EXERCISE (180/102 AT [facility]AK). 3. SCINTIGRAPHICALLY NORMAL PERFUSION STUDY. IV. DISPOSITION: The patient should be reassured regarding the lack of any evidence for significant coronary artery disease at this time. He had no chest pain or diagnostic EKG changes and tomographi c imaging is normal. In addition, ventricular function is well preserved with ejection fraction of 5 6%. This is a low-risk scan. Continued medical therapy and risk-factor modification recommended. Procedure performed and interpreted at [facility] Department of Radiology.
[2016-09-07] MEDS: ATORVASTATIN 20 MG TABLET PO SCH (20:51)
[2016-09-07] MEDS: MORPHINE 2 MG/1 ML SYRINGE IV PRN (20:52)
[2016-09-08] MEDS: hydrALAZINE 20 MG/1 ML VIAL IV PRN (04:50)
[2016-09-08 05:10] LABS: Basophils % 0.6 % (0.0-0.8); Eosinophils # 0.2 10*3/uL (0.0-0.87); Eosinophils % 2.4 % (0.00-10.9); Hematocrit 38.6 VOL% (42.0-52.0); Hemoglobin 14.1 GM/DL (14.0-18.0); Immature Granulocytes % 0.3 %; Immature Granulocytes Absolute 0.02 #; Lymphocytes # 2.5 10*3/uL (1.4-4.0); Lymphocytes % 37.7 % (21.2-54.2); Mean Corpuscular HGB Conc 36.5 GM/DL (32-36); Mean Corpuscular Hemoglobin 27 PG (27-34); Mean Corpuscular Volume 74.5 FL (87-102); Mean Platelet Volume 10.7 FL (9.6-12.0); Monocytes # 0.7 10*3/uL (0.11-0.8); Monocytes % 11.3 % (1.7-12.7); Neutrophils # 3.1 10*3/uL (1.4-7.4); Neutrophils % 47.7 % (38.7-73.9); Platelet Count 225 T/CUMM (130-400); Red Blood Count 5.18 MC/CUMM (3.8-5.5); White Blood Count 6.6 T/CUMM (4-12)
[2016-09-08 05:40] LABS: Calcium 8.8 MG/DL (8.5-10.1); Magnesium 2.5 MG/DL (1.8-2.4); Osmolality,Calculated 280.4 MOS/KG (273-304); Potassium 3.7 MMOL/L (3.5-5.1)
[2016-09-08 06:02] LABS: Risk Ratio 7.18; VLDL CHOLESTEROL 99.8 MG/DL
[2016-09-08 08:01] VITALS: BP 164/99
--- NOTE | 2016-09-08 08:24 | Cardiology Progress Note ---
Cardiology - PN: Subj Interval history: Cardiology note No shortness of breath or chest pain. Blood pressure 150/92. Regular rhythm no murmur or gallop Chest clear No leg edema Echo showed ejection fraction of 60% with mildly dilated left atrium, structurally normal valves, mild TR PA pressure 42 Normal exercise cardiac stress test. EF 56%. Hypertensive blood pressure response to exercise 180/102 with peak Plan Increase metoprolol 100 mg daily Norvasc 10 mg daily Patient encouraged to take medications daily and not to miss doses. Home okay with me Exam (Progress Note) - Constitutional Vitals: Period Temp Pulse Resp BP Sys/Ramirez Pulse Ox Last 24 Hr 97.3 F-98.4 F 68-88 18-20 137-191/83-105 97-99 Result/EKG - Labs CBC & BMP: 09/08/16 04:39 09/08/16 04:39 Labs: Laboratory Results - last 24 hr 09/07/16 09/08/16 09/08/16 09:38 04:39 04:39 WBC 6.6 RBC 5.18 Hgb 14.1 Hct 38.6 L MCV 74.5 L MCH 27 MCHC 36.5 H RDW 16.0 Plt Count 225 MPV 10.7 Neut % (Auto) 47.7 Lymph % (Auto) 37.7 [place] % (Auto) 11.3 Eos % (Auto) 2.4 Baso % (Auto) 0.6 Neut # (Auto) 3.1 Lymph # (Auto) 2.5 [place] # (Auto) 0.7 Eos # (Auto) 0.2 Baso # (Auto) 0.0 Immature Gran % 0.3 Nucleated RBC % 0.0 Immature Gran # 0.02 Nucleated RBCs # 0.00 Sodium 140 Potassium 3.7 Chloride 106 Carbon Dioxide 24 Anion Gap 13.7 BUN 17 Creatinine 1.00 GFR Calculation 148 BUN/Creatinine Ratio 17.00 Glucose 107 H Calculated Osmolality 280.4 Calcium 8.8 Magnesium 2.5 H Total Creatine Kinase 230 CK-MB (CK-2) < 1.0 Troponin I < 0.015 Triglycerides Cholesterol LDL Cholesterol VLDL Cholesterol HDL Cholesterol Heart Disease Risk Ratio 09/08/16 04:39 WBC RBC Hgb Hct MCV MCH MCHC RDW Plt Count MPV Neut % (Auto) Lymph % (Auto) [place] % (Auto) Eos % (Auto) Baso % (Auto) Neut # (Auto) Lymph # (Auto) [place] # (Auto) Eos # (Auto) Baso # (Auto) Immature Gran % Nucleated RBC % Immature Gran # Nucleated RBCs # Sodium Potassium Chloride Carbon Dioxide Anion Gap BUN Creatinine GFR Calculation BUN/Creatinine Ratio Glucose Calculated Osmolality Calcium Magnesium Total Creatine Kinase CK-MB (CK-2) Troponin I Triglycerides 499 H Cholesterol 244 H LDL Cholesterol 119.0 VLDL Cholesterol 99.8 HDL Cholesterol 34 L Heart Disease Risk Ratio 7.18 Quality Measures - Stroke Presenting Symptoms: Efferent motor dysphasia
[2016-09-08] MEDS ORDERED: METOPROLOL TARTRATE 100 MG TABLET PO SCH (09:00)
[2016-09-08] MEDS: PANTOPRAZOLE 40 MG TABLET PO SCH (09:58)
[2016-09-08] MEDS: ASPIRIN 325 MG TABLET PO SCH (09:58)
[2016-09-08] MEDS: ENOXAPARIN 40 MG/0.4 ML SYRINGE SUBCUT SCH (09:58)
[2016-09-08] MEDS: amLODIPine 10 MG TABLET PO SCH (09:58)
--- NOTE | 2016-09-08 10:05 | Discharge Summary ---
Hospital Course - Hospital Course Hospital Course: Mr Calderon presented with chest pain and uncontrolled BP. His BP has been brought under better control by restarting him on meds- he had stopped for several months when he didn't get refills because he couldn't pay to go to [facility] [place] [place]. His doses are increased at discharge. His chest pain was atypical. He ruled out for RI with serial troponins and had a chest CT that did not show PE. LE dopplers also negative. He had stress test today (exercise cardiolite) that was negative. He will follow up at [facility] [place] [place] and will fill his prescriptions today. - Time spent with patient Time with patient DS: Greater than 30 minutes (exam and discharge instructions, medicine reconciliation and documentation.) Diagnosis - Discharge Diagnosis (1) Essential hypertension Status: Chronic (2) Atypical chest pain Status: Resolved Specialty Discharge - Follow Up or Referrals Follow up with: Devin Lay [Physician] - 1 Week Discharge Plan - Discharge Data Disposition: Disch To Home/Self Care Condition at Discharge: Stable Discharge Diet: heart healthy, low fat, low cholesterol, low salt diet Activity: resume usual activities as tolerated - Discharge Medications New Aspirin Tab 325 mg PO DAILY tablet Atorvastatin [Lipitor] 20 mg PO BEDTIME #30 tablet Metoprolol Tartrate Tab [Lopressor Tab] 100 mg PO DAILY #30 tablet amLODIPine [Norvasc] 10 mg PO DAILY #30 tablet Discontinued Cetirizine Tab [ZyrTEC Tab] 10 mg PO DAILY PRN PRN Reason: Allergy Symptoms amLODIPine [Norvasc] 10 mg PO DAILY amLODIPine [Norvasc] 2.5 mg PO BEDTIME Simvastatin [Zocor] 40 mg PO BEDTIME Metoprolol Tartrate 25 mg PO BID Citalopram Hydrobromide [Citalopram HBr] 20 mg PO DAILY Ranitidine Tab [Zantac Tab] 150 mg PO BID Meloxicam [Mobic] 7.5 mg PO DAILY - Follow Up or Referral Follow Up: Devin Lay [Physician] - 1 Week - Forms/Instructions Exam - Constitutional Vitals: Period Temp Pulse Resp BP Sys/Ramirez Pulse Ox Last 24 Hr 97.3 F-98.4 F 68-88 18-20 137-191/83-102 97-98 General appearance: no acute distress, morbidly obese - Head Head exam: Present: normocephalic, atraumatic - Eye Eye exam: Present: EOMI. Absent: scleral icterus - Respiratory Respiratory exam: Present: clear to auscultation bilaterally. Absent: wheezes - Cardiovascular Cardiovascular exam: Present: regular rate and rhythm. Absent: diastolic murmur , systolic murmur - GI/Abdominal GI/Abdominal exam: Present: normal bowel sounds, soft. Absent: tenderness - Extremities Exam Extremities exam: Absent: edema Discharge Results Labs on day of discharge: Labs from last 24 hours 09/08/16 09/08/16 09/08/16 04:39 04:39 04:39 WBC 6.6 RBC 5.18 Hgb 14.1 Hct 38.6 L MCV 74.5 L MCH 27 MCHC 36.5 H RDW 16.0 Plt Count 225 MPV 10.7 Neut % (Auto) 47.7 Lymph % (Auto) 37.7 [place] % (Auto) 11.3 Eos % (Auto) 2.4 Baso % (Auto) 0.6 Neut # (Auto) 3.1 Lymph # (Auto) 2.5 [place] # (Auto) 0.7 Eos # (Auto) 0.2 Baso # (Auto) 0.0 Immature Gran % 0.3 Nucleated RBC % 0.0 Immature Gran # 0.02 Nucleated RBCs # 0.00 Sodium 140 Potassium 3.7 Chloride 106 Carbon Dioxide 24 Anion Gap 13.7 BUN 17 Creatinine 1.00 GFR Calculation 148 BUN/Creatinine Ratio 17.00 Glucose 107 H Calculated Osmolality 280.4 Calcium 8.8 Magnesium 2.5 H Total Creatine Kinase CK-MB (CK-2) Troponin I Triglycerides 499 H Cholesterol 244 H LDL Cholesterol 119.0 VLDL Cholesterol 99.8 HDL Cholesterol 34 L Heart Disease Risk Ratio 7.18 09/07/16 09:38 WBC RBC Hgb Hct MCV MCH MCHC RDW Plt Count MPV Neut % (Auto) Lymph % (Auto) [place] % (Auto) Eos % (Auto) Baso % (Auto) Neut # (Auto) Lymph # (Auto) [place] # (Auto) Eos # (Auto) Baso # (Auto) Immature Gran % Nucleated RBC % Immature Gran # Nucleated RBCs # Sodium Potassium Chloride Carbon Dioxide Anion Gap BUN Creatinine GFR Calculation BUN/Creatinine Ratio Glucose Calculated Osmolality Calcium Magnesium Total Creatine Kinase 230 CK-MB (CK-2) < 1.0 Troponin I < 0.015 Triglycerides Cholesterol LDL Cholesterol VLDL Cholesterol HDL Cholesterol Heart Disease Risk Ratio DS: Provider Date of admission: 09/06/16 13:27 Primary care physician: . No PCP Attending physician on admission: Pilar Pantoja MD Consults: 09/06/16 15:59 Consult to Physician [CONS] Routine Comment: Consulting Provider: Consult to Specialist Group: Cardiology When should Consulting Provider be notified: Now Person Notified: ORION Date Notified: 09/06/16 Time Notified: 16:15 09/06/16 17:00 Consult to Case Mgmt/Social Srvs [CONS] Routine Reason for Case Mgmt/Social Srvs: Other Consult Comment: NEEDS HELP APPLYING FOR DISABILITY/MEDICARE 09/07/16 10:20 Consult to Case Mgmt/Social Srvs [CONS] Routine Reason for Case Mgmt/Social Srvs: Other Consult Comment: HELP WITH OBTAINING HOME MEDS. Discharging clinician: Pilar Pantoja MD
== END 2016-09-08 11:20 | disposition home or self-care (01) | DRG 313 ==
LOC: N.ED 11:43 → N.EDINP 13:27 → N.TELES 15:36
PROVIDERS: ADMIT Internal Medicine; ATTEND Internal Medicine